=== PATIENT | female | born 1955 | race Caucasian/White ===

== ENCOUNTER 2020-09-23 14:39 | Outpatient (CLI) | payer MEDICARE, SELFPAY ==
--- NOTE | 2020-09-23 14:48 | ECG_ITS ---
Measurements Intervals [place] Rate: 75 P: 76 MT: 196 QRS: 80 QRSD: 83 T: 74 QT: 376 QTc: 420 Interpretive Statements SINUS RHYTHM NORMAL ECG Electronically Signed On 09-23-2020 16:18:10 [employer] DIRECTOR by Chase Florence D.O.
== END 2020-09-23 14:40 | disposition home or self-care (01) ==
PROVIDERS: PCP Family Medicine; Visit Provider Nurse Practitioner Family
DX: Z01.818 Encounter for other preprocedural examination (principal)
CPT/HCPCS: 93005

== ENCOUNTER 2023-07-12 13:53 | Outpatient (CLI) | payer OTHER, SELFPAY ==
[2023-07-12 15:13] LABS: Basophils Absolute Auto 0.1 K/mm3 (0.0-0.1); Basophils Percent Auto 0.9 % (0.2-1.2); Eosinophils Absolute Auto 0.2 K/mm3 (0-0.3); Eosinophils Percent Auto 2.7 % (0-4.4); Hematocrit 43.4 % (37.0-47.0); Hemoglobin 14.2 g/dL (12.0-15.0); Immature Granulocyte Absolute 0.01 K/mm3 (0.00-0.031); Immature Granulocyte Percent A 0.1 % (0-0.5); Lymphocytes Percent Auto 20.7 % (18.3-44.2); Mean Corpuscular HGB Conc 32.7 g/dl (32-36); Mean Corpuscular Hemoglobin 31.3 pg (26-34); Mean Corpuscular Volume 95.6 fl (80-100); Mean Platelet Volume 10.2 fl (7.4-10.4); Monocytes Absolute Auto 0.6 K/mm3 (0.1-0.6); Monocytes Percent Auto 9.3 % (2.6-8.5); Neutrophils Absolute Auto 4.5 K/mm3 (1.3-6.7); Neutrophils Percent Auto 66.3 % (45.5-73.1); Platelet Count Result 213 k/mm3 (150-375); Red Blood Count 4.54 M/mm3 (4.2-5.4); White Blood Count 6.8 K/mm3 (4.5-10.0)
[2023-07-12 15:15] LABS: Alanine Aminotransferase 36 U/L (6-35); Albumin Level 4.3 g/dL (3.5-5.1); Alkaline Phosphatase 78 U/L (38-126); Anion Gap 6 mmol/L (8-16); Aspartate Amino Transferase 42 U/L (14-36); Bilirubin,Total 0.6 mg/dL (0.2-1.3); Blood Urea Nitrogen 21 mg/dL (7-17); Calcium 9.7 mg/dL (8.4-10.2); Carbon Dioxide 31 mmol/L (22-30); Chloride 102 mmol/L (98-107); Cholesterol 313 mg/dL (0-200); Estimated Glomerular Filt Rate > 60; Glucose 99 mg/dL (65-110); HDL Direct 48 mg/dL; Potassium 4.6 mmol/L (3.4-5.0); Sodium 139 mmol/L (137-145); Triglycerides 274 mg/dL (<150)
[2023-07-12 15:25] LABS: LDL Cholesterol Direct 181 mg/dL
== END 2023-07-12 13:54 | disposition home or self-care (01) ==
LOC: ANHLAB 13:55
PROVIDERS: PCP Family Medicine; Visit Provider Physician Assistant Medical
DX: E78.5 Hyperlipidemia, unspecified (principal); Z13.1 Encounter for screening for diabetes mellitus; I10 Essential (primary) hypertension
CPT/HCPCS: 36415; 80053; 80061; 85025

== ENCOUNTER 2023-07-28 13:32 | Outpatient (CLI) | payer OTHER, SELFPAY ==
--- NOTE | ~2023-07-28 | US_ITS ---
EXAMINATION: US soft tissue LE LT DATE: 07/28/2023 14:13 INDICATION: Localized swelling, mass and lump, left lower limb. TECHNIQUE: Multiple grayscale and Doppler ultrasound images of the left lower limb were obtained. COMPARISON: None FINDINGS: In the plantar medial left foot distal to the first metatarsal, there is a 1.5 x 1.7 x 0.7 cm hypoechoic subcutaneous mass without internal vascular flow. IMPRESSION: 1. 1.7 cm subcutaneous mass in the plantar medial left foot distal to the first metatarsal. The diffe rential diagnosis includes benign masses such as peripheral nerve sheath tumor or giant cell tumor of the tendon sheath and malignancy such as sarcoma. Biopsy is recommended. Reviewed, dictated and finalized at location E. IMPRESSION: 1. 1.7 cm subcutaneous mass in the plantar medial left foot distal to the first metatarsal. The differential diagnosis includes benign masses such as peripher al nerve sheath tumor or giant cell tumor of the tendon sheath and malignancy s uch as sarcoma. Biopsy is recommended.
== END 2023-07-28 13:33 | disposition home or self-care (01) ==
PROVIDERS: PCP Family Medicine; Visit Provider Physician Assistant Medical
DX: R22.42 Localized swelling, mass and lump, left lower limb (principal)
CPT/HCPCS: 76882

== ENCOUNTER 2024-07-26 08:56 | Outpatient (CLI) | payer OTHER, SELFPAY ==
--- NOTE | ~2024-07-26 | US_ITS ---
EXAMINATION: US biopsy st muscle DATE: 07/26/2024 11:14 INDICATION: Indeterminate mass on the plantar surface of the left forefoot TECHNIQUE: The procedure including the risks, benefits, and alternatives was discussed with the patie nt. Risks discussed included bleeding, infection and nondiagnostic biopsy. The patient understood the risks and agreed to proceed. The skin overlying the plantar surface of the forefoot was prepped and draped in usual sterile fashio n. Anesthetic was administered with 1% lidocaine subcutaneously. A 17-gauge introducer was advanced directly into the lesion. An 18 gauge core biopsy needle was then used to obtain multiple core biopsy specimens under continuous sonographic guidance. All devices were then removed, and sterile dressing applied. There were no immediate complications. FINDINGS: Ultrasound images demonstrate the needle in the central portion of the lesion. Passes: 6 Lidocaine amount: 10 cc IMPRESSION: 1. Technically successful ultrasound-guided core needle biopsy of an indeterminate mass along the del ntar surface of the left forefoot, as detailed above. Reviewed, dictated and finalized at location A. IMPRESSION: 1. Technically successful ultrasound-guided core needle biopsy of an indetermin ate mass along the plantar surface of the left forefoot, as detailed above.
== END 2024-07-26 08:57 | disposition home or self-care (01) ==
PROVIDERS: PCP Family Medicine; Visit Provider Physician Assistant Medical
DX: M84.872 Other disorders of continuity of bone, left ankle and foot (principal); R22.42 Localized swelling, mass and lump, left lower limb
CPT/HCPCS: 20206; 76942; 88108; 88305; 88342